=== PATIENT | female | born 1970 | race Caucasian/White ===

== ENCOUNTER 2023-07-11 15:58 | Emergency (ER) | payer OTHER, SELFPAY ==
[2023-07-11] VITALS (54 sets, daily range): BP systolic 89–159; BP diastolic 43–80; PULSE 50–87; RESP 12–21; TEMP 36.3–36.9; O2SAT 94–100
--- NOTE | 2023-07-11 16:22 | ED.GENADULT ---
HPI - General Adult General Chief complaint: Recheck/Abnormal Lab/Rx Stated complaint: wants hgb tested Time Seen by Provider: 07/11/23 16:02 History of Present Illness HPI narrative: 53-year-old female with a recent history of GI bleed presenting to the emergency department for evaluation of a hemoglobin check. Patient states 2 weeks ago she had onset of hematemesis and was seen at [facility]. Patient did have a scope and no active bleeding site was identified. Patient states that she felt she was not getting adequate care at [facility] so she left AMA. Patient states since being discharged she has had no further hematemesis or melena but states she has had increased dizziness and lightheadedness. Patient initially presents for a hemoglobin check Related Data Home Medications Medication Instructions Recorded Confirmed aspirin 81 mg tablet,delayed 81 mg PO DAILY 12/04/20 03/06/21 release citalopram 20 mg tablet (Celexa) 20 mg PO DAILY 12/04/20 03/06/21 folic acid 0.8 mg capsule 0.8 mg PO DAILY 12/04/20 03/06/21 methotrexate (PF) 10 mg/0.2 mL 10 mg subcut WEEKLY 12/04/20 03/06/21 subcutaneous auto-injector reserpine 0.125 tablet PO 12/04/20 03/06/21 mg-hydrochlorothiazide 25 mg tablet Allergies Allergy/AdvReac Type Severity Reaction Status Date / Time Penicillins Allergy Mild Unknown Verified 07/11/23 16:11 Review of Systems Review of Systems: All systems reviewed & are unremarkable except as noted in HPI and below PMFSH Social History Social History Smoking status: Former smoker Alcohol intake: never Exam Narrative: APPEARANCE: Well appearing, no pain, no distress, well-nourished. HEAD: normocephalic, atraumatic. EYES: PERRLA/EOMI, conjunctivae clear. NOSE: Normal no drainage EARS:TMS clear with good light reflex. THROAT: Pharynx clear, no exudate. NECK: Supple. No adenopathy, no masses. RESPIRATORY: Airway patent, respirations nonlabored. Clear to auscultation bilaterally, no rales, rhonchi, wheezing. CARDIOVASCULAR: Regular rate and rhythm without murmurs rubs or gallops. ABDOMINAL: Soft, nontender, nondistended, normal bowel sounds Rectal exam: Hemoccult negative MUSCULOSKELETAL: Moves all extremities. Strength/ROM intact, No edema, No calf tenderness. NEURO: Alert. Cranial nerves II through XII intact. Grossly intact SKIN: Warm, dry. Normal Color Course Course Emergency Course: 53-year-old female presenting ED for evaluation of anemia. Patient's hemoglobin was 6.5. Patient is not tachycardic nor hypoxic. See MP has no acute changes. Patient was treated with 1 unit of packed red blood cells. Patient was Hemoccult negative has no active bleeding. Patient was updated on results of workup and plan for treatment. All questions concerns were addressed patient was comfortable plan for discharge close follow-up with GI. Vital Signs Vital signs: Vital Signs Temperature 98.0 F 07/11/23 16:00 Pulse Rate 87 07/11/23 16:00 Respiratory Rate 18 07/11/23 16:00 Blood Pressure 159/66 H 07/11/23 16:00 Pulse Oximetry 99 07/11/23 16:00 Temperature 97.5 F L 07/11/23 22:00 Pulse Rate 52 L 07/11/23 22:01 Respiratory Rate 14 07/11/23 22:01 Blood Pressure 126/61 07/11/23 22:01 Pulse Oximetry 99 07/11/23 22:01 Medical Decision Making Vital Signs Vital Signs: Vital Signs Temperature 98.0 F 07/11/23 16:00 Pulse Rate 87 07/11/23 16:00 Respiratory Rate 18 07/11/23 16:00 Blood Pressure 159/66 H 07/11/23 16:00 Pulse Oximetry 99 07/11/23 16:00 Temperature 97.5 F L 07/11/23 22:00 Pulse Rate 52 L 07/11/23 22:01 Respiratory Rate 14 07/11/23 22:01 Blood Pressure 126/61 07/11/23 22:01 Pulse Oximetry 99 07/11/23 22:01 Lab Data 07/11/23 16:34 07/11/23 16:34 Labs: Lab Results 07/11/23 Range/Units 16:34 WBC 10.0 (4.5-10.0) K/mm3 RBC 2.77 L (4.
[2023-07-11 16:42] LABS: Basophils Percent Auto 0.4 % (0.2-1.2); Eosinophils Absolute Auto 0.3 K/mm3 (0-0.3); Immature Granulocyte Absolute 0.16 K/mm3 (0.00-0.031); Immature Granulocyte Percent A 1.6 % (0-0.5); Lymphocytes Percent Auto 28.1 % (18.3-44.2); Mean Corpuscular HGB Conc 28.3 g/dl (32-36); Mean Corpuscular Hemoglobin 23.5 pg (26-34); Mean Platelet Volume 9.4 fl (7.4-10.4); Monocytes Absolute Auto 0.8 K/mm3 (0.1-0.6); Monocytes Percent Auto 7.6 % (2.6-8.5); Neutrophils Absolute Auto 5.9 K/mm3 (1.3-6.7); Neutrophils Percent Auto 59.3 % (45.5-73.1); Nucleated Red Blood Cells Absolute Auto 0.1 K/mm3 (0.0-0.012); Nucleated Red Blood Cells Perc 0.8 % (0.0-0.2); Platelet Count Result 448 k/mm3 (150-375); Red Blood Count 2.77 M/mm3 (4.2-5.4); Red Cell Distribution Width 21.3 % (11.5-14.5)
[2023-07-11 16:51] LABS: Hemoglobin 6.5 g/dL (12.0-15.0); Platelet Estimate Increased (Adequate)
[2023-07-11 16:52] LABS: Anisocytosis 1+ (NORMAL); Hypochromasia 1+ (NORMAL); Ovalocytes 1+ (NORMAL); Schistocytes None Seen (NORMAL)
[2023-07-11] MEDS: SODIUM CHLORIDE 0.9% IV 1,000 ML 999 ML IV CONT (17:00)
[2023-07-11 17:08] LABS: Alanine Aminotransferase 14 U/L (6-35); Albumin Level 3.9 g/dL (3.5-5.1); Alkaline Phosphatase 66 U/L (38-126); Anion Gap 8 mmol/L (8-16); Aspartate Amino Transferase 25 U/L (14-36); Bilirubin,Total 0.3 mg/dL (0.2-1.3); Blood Urea Nitrogen 14 mg/dL (7-17); Calcium 8.6 mg/dL (8.4-10.2); Carbon Dioxide 25 mmol/L (22-30); Chloride 105 mmol/L (98-107); Estimated CRCL calculation 91 ml/min; Estimated Glomerular Filt Rate > 60; Glucose 114 mg/dL (65-110); Potassium 3.8 mmol/L (3.4-5.0); Sodium 138 mmol/L (137-145)
[2023-07-11] MEDS: SODIUM CHLORIDE 0.9% IV 250 ML 30 ML IV CONT (19:34)
[2023-07-11] MEDS: TUBING, BLOOD PLUM PUMP TUBING 1 EACH XX (19:34)
== END 2023-07-11 22:10 | disposition home or self-care (01) ==
PROVIDERS: Emergency Provider Emergency Medicine; PCP Internal Medicine Gastroenterology
DX: D64.9 Anemia, unspecified (principal); Z87.891 Personal history of nicotine dependence; Z79.82 Long term (current) use of aspirin
CPT/HCPCS: 36415; 36430; 80053; 85025; 86850; 86900; 86901; 86923; 96360; 96361; 99285; J7030; J7050; P9016